=== PATIENT | female | born 1980 | race Caucasian/White ===

== ENCOUNTER 2018-06-23 06:57 | Observation (INO) | payer BC, OTHER ==
[~2018-06-23 06:57] MED LIST: Bacitracin OINTMENT* 0.5% 0.5 oz TUBE ONE; Buffered Lidocaine 1% SYRIN* 1 ML/SYRINGE INTRADERM ONE; Lactated Ringers 1000 ML Bag* 1,000 ML IV SCH; VASOPRESSIN 20 UNITS/ML 1 ML VIAL ONE; ceFOXitin 2 GM IVPREMIX* 0 GM/0 ML BAG ONE
[2018-06-23] MEDS ORDERED: ceFOXitin 2 GM IVPREMIX* 2 GM/50 ML BAG ONE (07:30)
[2018-06-23 08:24] LABS: ABS Eosinophils 0.1 10^3/ul (0-0.6); ABS Lymphocytes 1.8 10^3/ul (1.0-4.8); ABS Monocytes 0.6 10^3/ul (0-0.8); ABS Neutrophils 3.8 10^3/ul (1.5-7.7); Eosinophil % 1.9 %; Hematocrit 39 % (35-47); Lymphocyte % 28.8 %; Mean Corpuscular HGB Conc 33 g/dL (31-36); Mean Corpuscular Hemoglobin 30 pg (27-31); Mean Corpuscular Volume 88 fL (80-97); Mean Platelet Volume 7.5 fL (7.4-10.4); Nucleated Red Blood Cells % 0.1; Platelet Count 249 10^3/uL (150-450); Red Blood Count 4.39 10^6 /uL (3.70-4.87); Red Cell Distribution Width 13 % (10.5-15); White Blood Count 6.3 10^3/uL (3.5-10.8)
[2018-06-23] MEDS ORDERED: Scopolamine 1.5 mg* PATCH ONE (08:39)
[2018-06-23] MEDS ORDERED: Propofol* 10 MG/ML 20 ML BTL ONE ×3 (08:52→11:23)
[2018-06-23] MEDS ORDERED: fentaNYL* 50 MCG/ML 2 ML VIAL (100 MCG VIAL) ONE ×3 (08:52→12:31)
[2018-06-23] MEDS ORDERED: Midazolam* 1 MG/ML 2 ML VIAL (2 MG) ONE (08:52)
[2018-06-23] MEDS ORDERED: Lidocaine 2% PF * 5 ML VIAL ONE (08:52)
[2018-06-23] MEDS ORDERED: Rocuronium* 10 MG/ML VIAL ONE ×2 (09:05→10:21)
[2018-06-23] MEDS ORDERED: VASOPRESSIN 20 UNITS/ML 1 ML VIAL ONE ×2 (09:07→09:27)
[2018-06-23] MEDS ORDERED: Dexamethasone IV* 4 MG/ML 1 ML (4 MG) ONE (09:19)
[2018-06-23] MEDS ORDERED: Ondansetron INJ* 2 MG/ML VIAL ONE ×2 (09:19→12:31)
[2018-06-23] MEDS ORDERED: Metoclopramide IV* 5 MG/ML 2 ML VIAL ONE (09:19)
[2018-06-23] MEDS ORDERED: Ketorolac INJ* 30 MG/ML 1 ML VIAL ONE (09:19)
[2018-06-23] MEDS ORDERED: oxyCODONE TAB* 5 MG TAB PO PRN (10:29)
[2018-06-23] MEDS ORDERED: Naloxone* 0.4 MG/ML 1 ML VIAL IV PRN (10:29)
[2018-06-23] MEDS ORDERED: Sugammadex * 200 MG/2 ML VIAL IV PUSH ONE (10:29)
[2018-06-23] MEDS ORDERED: DiMENhydriNATE IV* 50 MG/ML VIAL IV PUSH PRN (10:29)
[2018-06-23] MEDS ORDERED: Acetaminophen IV 1GM/100ML * 100 ML ONE (10:31)
[2018-06-23] MEDS ORDERED: Ondansetron INJ* 2 MG/ML VIAL IV PRN (12:06)
[2018-06-23] MEDS ORDERED: oxyCODONE TAB* 5 MG TAB ONE (12:30)
[2018-06-23] MEDS: fentaNYL* 50 MCG/ML 2 ML VIAL (100 MCG VIAL) IV PRN ×3 (12:33→12:56)
[2018-06-23] MEDS: Ibuprofen TAB* 600 MG PO PRN (14:43)
[2018-06-23] MEDS: Lactated Ringers 1000 ML Bag* 1,000 ML IV SCH ×2 (14:44→22:34)
[2018-06-23] MEDS: Acetaminophen TAB* 325 MG PO PRN (16:29)
[2018-06-23] MEDS: oxyCODONE/Acetamin 5/325 MG* TAB PO PRN ×2 (16:29→20:40)
[2018-06-23] MEDS: Docusate CAP* 100 MG PO SCH (20:40)
--- NOTE | 2018-06-23 23:45 | OP ---
OPERATIVE REPORT: DATE OF OPERATION: 06/23/18 DATE OF : 82 SURGEON: Ashlie Sierra MD [facility] DIRECTOR: Dr. Pina. PRE-OP DIAGNOSES: 1. Uterine prolapse. 2. Second-degree cystocele. 3. Third-degree rectocele. 4. Desires surgical management. POST-OP DIAGNOSES: 1. Uterine prolapse. 2. Second-degree cystocele. 3. Third-degree rectocele. 4. Desires surgical management. OPERATIVE PROCEDURE: Total vaginal hysterectomy, right salpingectomy, anterior and posterior repair. ESTIMATED BLOOD LOSS: 300 mL. FLUID: 1200 mL of crystalloid. DRAINS: May catheter. FINDINGS: Normal-appearing uterus, right ovary and tube. Unable to visualize the left ovary, but ovary palpated and felt normal. Unable to visualize left tube. Normal external genitalia and vagina. DESCRIPTION OF PROCEDURE: After informed consent was signed, the patient was taken to the operating room where she was given general anesthesia that was found to be adequate. She was prepped and draped in the dorsal lithotomy position in [facility] cane stirrups. A time-out was performed. Also, SCDs had been placed on her legs prior to draping. Her bladder was then drained of urine and a catheter was put in place. Next, the anterior and posterior lips of the cervix were grasped with a tenaculum and the cervix was injected with dilute vasopressin at the cervicovaginal junction in a circumferential fashion. The Metzenbaum scissors were then used to incise around the cervix in this location. The patient was having some bleeding, therefore Bovie cautery was used to continue the dissection around the cervix. The vaginal tissue was then further dissected off the cervix with blunt dissection. The posterior cul-de- sac was entered first with Metzenbaum scissors. The uterosacral ligaments were then clamped, cauterized, and cut with the LigaSure device. Next, the anterior cul-de-sac was entered without difficulty with Metzenbaum scissors. The LigaSure device was used to continue to clamp, cauterize, and cut through the rest of the uterosacral ligaments and the uterine vessels, then along the mesosalpinx. Good hemostasis was noted at the pedicles at all points. The uterus was then delivered posteriorly and the LigaSure device was used to clamp , cauterize, and cut through the utero-ovarian ligament and the tube, first on the right side and then on the left side. The uterus and cervix were removed. The right tube was easily visualized and therefore was grasped with a Mayfield clamp and then clamped, cauterized, and cut with the LigaSure device. The right tube was then sent with the pathology specimen. The right pedicle was inspected and good hemostasis was noted. Then attention was turned to the left side where there was also good hemostasis noted. However, the left tube could not be easily identified so it was left in situ. A Lui suture was then placed through the posterior vaginal cuff and the uterosacral ligaments bilaterally. This was held in place for later suspension of the vaginal vault. Next, attention was turned to the anterior repair. The anterior vaginal mucosa was injected with dilute vasopressin and was then cut along the midline with Metzenbaum scissors. The vaginal wall was dissected off the bladder. The fascia was then reapproximated with interrupted sutures of 2-0 Vicryl. The anterior vaginal mucosa was then closed with 3-0 Vicryl in a running unlocked fashion. The vaginal cuff was then closed with 0 Vicryl in a running unlocked fashion. Lui suture was used to suspend the vaginal apex. Then attention was turned to the posterior repair. The posterior vaginal mucosa was injected with dilute vasopressin and Metzenbaum scissors were used to cut along the midline. The vaginal tissue was dissected off from the rectum and the fascia was then reapproximated with 2-0 Vicryl in interrupted sutures. A suture of 2- 0 Vicryl was also used to bring the perineal body closer together and the posterior vaginal mucosa was then closed with 3-0 Vicryl in a running unlocked fashion. The vagina was then packed with packing with lubricant on it. The patient was then cleaned, placed back in the supine position, awakened from anesthesia, and taken to the recovery room in stable condition. [id number]/[facility] #: [id number] ANGELES
[2018-06-24] MEDS: oxyCODONE/Acetamin 5/325 MG* TAB PO PRN ×3 (00:42→09:08)
[2018-06-24] MEDS: Acetaminophen TAB* 325 MG PO PRN (00:42)
[2018-06-24 05:03] LABS: ABS Basophils 0.1 10^3/ul (0-0.2); ABS Eosinophils 0.1 10^3/ul (0-0.6); ABS Lymphocytes 2.4 10^3/ul (1.0-4.8); ABS Monocytes 0.8 10^3/ul (0-0.8); ABS Neutrophils 6.8 10^3/ul (1.5-7.7); Eosinophil % 0.5 %; Hematocrit 37 % (35-47); Hemoglobin 12.5 g/dL (12.0-16.0); Lymphocyte % 23.8 %; Mean Corpuscular HGB Conc 34 g/dL (31-36); Mean Corpuscular Hemoglobin 30 pg (27-31); Mean Corpuscular Volume 88 fL (80-97); Mean Platelet Volume 7.2 fL (7.4-10.4); Nucleated Red Blood Cells % 0.1; Platelet Count 253 10^3/uL (150-450); Red Blood Count 4.23 10^6 /uL (3.70-4.87); Red Cell Distribution Width 13 % (10.5-15); White Blood Count 10.1 10^3/uL (3.5-10.8)
[2018-06-24] MEDS: Ibuprofen TAB* 600 MG PO PRN (07:26)
[2018-06-24] MEDS: Docusate CAP* 100 MG PO SCH (07:26)
[2018-06-24] MEDS ORDERED: oxyCODONE TAB* 5 MG TAB PO PRN (09:36)
[2018-06-24] MEDS ORDERED: Magnesium Hydroxide LIQ* 30 ML UDC PO PRN (09:37)
[2018-06-24] MEDS ORDERED: Magnesium Hydroxide LIQ* 30 ML UDC ONE (09:58)
[2018-06-24 12:23] VITALS: BP 103/58
--- NOTE | 2018-07-12 16:19 | DS ---
DISCHARGE SUMMARY: DATE OF ADMISSION: 06/23/18 DATE OF DISCHARGE: 06/24/18 ADMITTING DIAGNOSES: 1. Uterine prolapse. 2. Cystocele. 3. Rectocele. DISCHARGE DIAGNOSES: 1. Uterine prolapse. 2. Cystocele. 3. Rectocele. SURGICAL PROCEDURES: 1. Total vaginal hysterectomy. 2. Right salpingectomy. 3. Anterior and posterior repair. No films, studies, or x-rays. HOSPITAL COURSE: The patient was admitted and underwent her surgery as scheduled. She had an uncomplicated postoperative course. She was advanced to regular diet. She was able to ambulate. The pain was well controlled on oral medication. Her packing was removed on postop day #1 and she was able to void without difficulty. Discharge instructions were reviewed with the patient and given to her in printed form. Discharge disposition is to home. Followup visits were previously scheduled with the office. [id number]/[facility] #: [id number] ANGELES
== END 2018-06-24 12:10 | disposition home or self-care (01) ==
LOC: OR 06:57 → SSU 14:01
PROVIDERS: ADMIT Obstetrics & Gynecology; ATTEND Obstetrics & Gynecology
DX: N81.3 Complete uterovaginal prolapse (principal); N81.6 Rectocele; N81.10 Cystocele, unspecified; Z79.899 Other long term (current) drug therapy
CPT/HCPCS: 36415; 85025; 86850; 86900; 86901; 88305; 96372; 96374; 96375; A9270-GY; G0378; J0694; J1100; J1885; J2250; J2405; J2704; J2765; J3010

== ENCOUNTER 2019-05-15 21:22 | Emergency (ER) | payer BC, OTHER ==
--- NOTE | 2019-05-15 21:27 | ED ---
Syncope/Near Syncope - HPI Summary HPI Summary: Patient is a 38 y/o F presenting to the ED via EMS for a chief complaint of syncope that occurred on 05/15/19 and has since resolved. Patient reports that she was lying on her side in bed when she felt left arm myalgia and paresthesia , and chest pain that radiated to the back. After this began, she sat on the edge of her bed and felt dizziness. She then stood up and while walking to her bedroom door, she had a syncopal episode, hitting her head as she fell. After the syncopal episode, the chest pain, left arm myalgia, left arm paresthesia, and dizziness improved. Currently, she continues to have chest "tightness" and "disorientation." She describes the chest pain as a tightness sensation. She notes having chest pain in the past when anxious. Patient denies nausea, vomiting, diarrhea, or changes in appetite. No aggravating or alleviating factors are reported. Patient notes positive sick contact at home with her stepdaughter and son that have a cough, but denies having a cough herself. She takes an antacid as needed for GERD and a multivitamin, including vitamin C. PSHx is significant for hysterectomy, appendectomy, and cholecystectomy. FMHx is significant for cardiac disease in her father and PR in her sister at 50 y/ o. She denies having a cardiac stress test in the past. Any drug or alcohol use is denied, and patient quit using tobacco 2 years ago. Allergies noted. - History Of Current Complaint Chief Complaint: EDDizziness Time Seen by Provider: 05/15/19 21:24 Hx Obtained From: Patient Onset/Duration: Sudden Onset, Resolved Timing: Minutes Activity At Onset: At Rest Aggravating Factor(s): Nothing Alleviating Factor(s): Nothing, Spontaneous Resolution Associated Signs And Symptoms: Chest Pain, Dizzy, Pain - Left arm - Allergies/Home Medications Allergies/Adverse Reactions: Allergies Allergy/AdvReac Type Severity Reaction Status Date / Time No Known Allergies Allergy Verified 05/15/19 21:31 Home Medications: Home Medications Cyanocobalamin (Vitamin B-12) [Vitamin B-12] 1,000 mcg PO QAM 06/09/18 [History Confirmed 05/15/19] Folic Acid/Multivit-Min/Lutein [Multi-Vitamin Gummies] 2 tab PO QAM 06/09/18 [ History Confirmed 05/15/19] Magnesium Oxide [Magnesium] 400 mg PO QAM 06/09/18 [History Confirmed 05/15/19] PMH/Surg Hx/FS Hx/Imm Hx Previously Healthy: Yes Cardiovascular History: Denies: Other Cardiovascular Problems/Disorders Respiratory History: Denies: Other Respiratory Problems/Disorders GI History: Reports: Hx Gastroesophageal Reflux Disease, Hx Hiatal Hernia, Hx Ulcer - history of, not in several years, Other GI Disorders - Constipation, Cholecystectomy, Appendectomy History: Reports: Hx Kidney Stones - possible stone passed a few weeks ago, Other Problems/Disorders - Incomplete uterovaginal prolapse, Rectocele Musculoskeletal History: Reports: Hx Tendonitis - Right lower arm Denies: Other Musculoskeletal History Sensory History: Denies: Hx Contacts or Glasses, Hx Hearing Aid Opthamlomology History: Denies: Hx Contacts or Glasses Neurological History: Reports: Hx Migraine - history of, 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 Tubal Ligation/Hysterectomy 2006 [place] Hx Anesthesia Reactions: No Infectious Disease History: No Infectious Disease History: Denies: Traveled Outside the [place] in Last 30 Days - Family History Known Family History: Positive: Cardiac Disease, Other - PR - Social History Occupation: Employed Full-time Alcohol Use: Rare Alcohol Amount: very, very rarely Hx Substance Use: No Substance Use Type: Reports: None Hx Tobacco Use: Yes Smoking Status (MU): Former Smoker Type: Cigarettes Amount Used/How Often: 1/3 PPD on and off for years since age 13 - Additional Comments History Additional Comments: Tobacco use - last used 2 years ago. Review of Systems - ROS Summary Review of Systems Summary: Cyanocobalamin (Vitamin B-12) [Vitamin B-12] 1,000 mcg PO QAM 06/09/18 [History Confirmed 05/15/19] Folic Acid/Multivit-Min/Lutein [Multi-Vitamin Gummies] 2 tab PO QAM 06/09/18 [ History Confirmed 05/15/19] Magnesium Oxide [Magnesium] 400 mg PO QAM 06/09/18 [History Confirmed 05/15/19] Negative: Other - Negative change in appetite Positive: Chest Pain - Radiates to the back Negative: Cough Negative: Vomiting, Diarrhea, Nausea Positive: Myalgia - Back that radiates from the chest, left arm Neurological/Mental Status: Other - Positive dizziness Positive: Paresthesia - Left arm, Syncope - Resolved All Other Systems Reviewed And Are Negative: Yes Physical Exam - Summary Physical Exam Summary: General: Well-developed, Obese Female. No acute distress. Mildly anxious appearing. HEENT: Normocephalic, Atraumatic. Eyes: Conjuctiva normal, PERRL. Oropharynx: Clear, mucous membranes moist, (-) exudates. Neck: Soft, FROM, (-) lymphadenopathy, (-) thyromegaly, (-) JVD. Cardiovascular: Normal sinus rhythm, (-) murmur. Lungs: Clear to auscultation bilaterally (-) wheezes, (-) rales, (-) rhonchi. Abdomen: Soft, non-tender, non-distended, (-) organomegaly, normal bowel sounds. Back: (-) CVA tenderness Extremities: No edema. Skin: Warm, dry, (-) rash. Neuro: Alert and oriented x3, moves all extremities equally. No ataxia. No gait disturbance. No sensory deficit. Normal strength, normal sensation. Psychiatric: Mood normal, affect normal. Triage Information Reviewed: Yes Vital Signs Reviewed: Yes - [place] Coma Scale Best Eye Response: 4 - Spontaneous Best Motor Response: 6 - Obeys Commands Best Verbal Response: 5 - Oriented Coma Scale Total: 15 Procedures - Sedation Patient Received Moderate/Deep Sedation with Procedure: No Diagnostics - Laboratory Result Diagrams: 05/15/19 22:28 05/15/19 22:28 Lab Statement: Any lab studies that have been ordered have been reviewed, and results considered in the medical decision making process. - Radiology Chest X-ray Radiology Interpretation Completed By: ED Physician Summary of Radiographic Findings: Chest X-ray IMPRESSION: No infiltrate. No pleural effusion. Reviewed and interpreted by Dr. Black, pending official radiology report. - CT Brain CT CT Interpretation Completed By: Radiologist Summary of CT Findings: Brain CT IMPRESSION: No acute intracranial abnormality. Reviewed by Dr. Black. Re-Evaluation - Re-Evaluation First Eval Re-Evaluation Time: 01:57 Change: Improved Comment: I discussed all results and chest pain has resolved. Discussed all symptoms that warrant return to the ED. Course/Dx Course Of Treatment: 38-year-old female presents from home by ambulance after an episode of disorientation with follow-up. Patient states she was laying in bed and started with her arm being numb. Followed by disorientation. She ended up trying to dial 911 and found herself unable to do that. She states at this time most of her symptoms have resolved except for some chest tightness and feeling some disorientation. No current dizziness. She's never had anything like this before. Significant family history is a sister who of an PR at 50. Patient did stop smoking 2 years ago. Patient has no significant findings on physical exam. Patient has normal EKG and negative troponins 2. Workup otherwise unremarkable including x-ray. Patient discharged home. Advised rest and plenty of fluids. Call PCP office tomorrow. Return sooner for any worsening symptoms. - Diagnoses Differential Diagnosis/HQI/PQRI: Positive: Cerebral Vascular Accident, Coronary Artery Disease, Hypoglycemia, Myocardial Infarction, Pulmonary Embolism, Transient Ischemic Attack, Vasovagal Episode Provider Diagnoses: Near syncope Discharge ED - Sign-Out/Discharge Documenting (check all that apply): Patient Departure - Discharge - Discharge Plan Condition: Stable Disposition: HOME Patient Education Materials: Near Syncope (ED) Referrals: Roxy Leon PA [Primary Care Provider] - Additional Instructions: Please follow up with your primary care physician within three days. Please return to ED for any new or worsening symptoms. - Billing Disposition and Condition Condition: STABLE Disposition: Home - Attestation Statements Document Initiated by Imanie: Yes Documenting Scribe: Lyssa Seo Provider For Whom Vickey is Documenting (Include Credential): Mandy Black MD Scribe Attestation: Lyssa Faith, scribed for Mandy Black MD on 05/16/19 at 0206. Scribe Documentation Reviewed: Yes Provider Attestation: The documentation as recorded by the Lyssa beckham accurately reflects the service I personally performed and the decisions made by me, Mandy Black MD Status of Scribe Document: Viewed
[2019-05-15 22:36] LABS: ABS Basophils 0.1 10^3/ul (0-0.2); ABS Eosinophils 0.1 10^3/ul (0-0.6); ABS Lymphocytes 1.9 10^3/ul (1.0-4.8); ABS Monocytes 0.7 10^3/ul (0-0.8); ABS Neutrophils 7.8 10^3/ul (1.5-7.7); Eosinophil % 0.8 %; Hematocrit 42 % (35-47); Hemoglobin 14.1 g/dL (12.0-16.0); Lymphocyte % 17.7 %; Mean Corpuscular HGB Conc 34 g/dL (31-36); Mean Corpuscular Hemoglobin 30 pg (27-31); Mean Corpuscular Volume 89 fL (80-97); Mean Platelet Volume 7.6 fL (7.4-10.4); Platelet Count 299 10^3/uL (150-450); Red Blood Count 4.67 10^6 /uL (3.70-4.87); Red Cell Distribution Width 13 % (10-15); White Blood Count 10.5 10^3/uL (3.5-10.8)
[2019-05-15 22:53] LABS: Albumin 3.8 g/dL (3.2-5.2); Albumin/Globulin Ratio 1.4 (1-3); BUN/Creatinine Ratio 19.7 (8-20); Calcium 8.8 mg/dL (8.6-10.3); EGFR African American 103.6 (>60); EGFR Non-African American 85.6 (>60); Globulin 2.8 g/dL (2-4); Total Bilirubin 0.2 mg/dL (0.2-1.0); Total Protein 6.6 g/dL (6.4-8.9)
[2019-05-15 23:15] LABS: Urine Appearance Clear; Urine Bilirubin Negative (Negative); Urine Blood Negative (Negative); Urine Color Colorless; Urine Glucose Negative (Negative); Urine Ketones Negative (Negative); Urine Nitrite Negative (Negative); Urine Protein Negative (Negative); Urine Specific Gravity 1.002 (1.010-1.030); Urine Urobilinogen Negative (Negative)
[2019-05-15 23:37] LABS: TSH (Thyroid Stimulating Horm) 1.75 mcIU/mL (0.34-5.60)
[2019-05-15 23:40] LABS: Potassium 3.9 mmol/L (3.5-5.0)
[2019-05-16 01:50] VITALS: BP 114/66
== END 2019-05-16 02:11 | disposition home or self-care (01) ==
LOC: ED 21:22
DX: R55 Syncope and collapse (principal); K21.9 Gastro-esophageal reflux disease without esophagitis; Z90.89 Acquired absence of other organs; Z90.710 Acquired absence of both cervix and uterus; Z90.49 Acquired absence of other specified parts of digestive tract; Z87.442 Personal history of urinary calculi; Z87.891 Personal history of nicotine dependence
CPT/HCPCS: 36415; 70450; 71045; 80053; 81003; 83605; 83735; 84443; 84484; 85025; 99284